=== PATIENT | male | born 2000 | race Two or more races ===

== ENCOUNTER 2023-11-06 08:25 | Emergency (ER) | payer OTHER ==
[~2023-11-06] VITALS: Ht 172.7 cm; Wt 73.9 kg
== END 2023-11-06 11:19 | disposition home or self-care (01) ==
LOC: ER 08:26
DX: S69.82XA Other specified injuries of left wrist, hand and finger(s), initial encounter (principal); V49.88XA Car occupant (driver) (passenger) injured in other specified transport accidents, initial encounter; Y93.89 Activity, other specified; Y92.413 State road as the place of occurrence of the external cause; S89.81XA Other specified injuries of right lower leg, initial encounter; S39.82XA Other specified injuries of lower back, initial encounter